=== PATIENT | male | born 1995 | race African-American/Black ===

== ENCOUNTER 2021-05-02 16:15 | Inpatient (IN) | payer OTHER ==
[2021-05-02 20:37] VITALS: BMI 29.6
[2021-05-02] MEDS ORDERED: ONDANSETRON *ODT* 4 MG TABLET SL PRN (21:04)
[2021-05-02] MEDS ORDERED: IBUPROFEN 400 MG TABLET (FP) PO PRN (21:04)
[2021-05-02] MEDS ORDERED: ACETAMINOPHEN 325 MG TABLET (FP) PO PRN (21:04)
[2021-05-02] MEDS ORDERED: MENTHOL/PHENOL 1 EACH UD MM PRN (21:04)
[2021-05-02] MEDS ORDERED: NICOTINE 10 MG CARTRIDGE (INHALER) IH PRN (21:04)
[2021-05-02] MEDS ORDERED: MAGNESIUM CITRATE 300 ML BOTTLE PO PRN (21:04)
[2021-05-02] MEDS ORDERED: MAG HYDROX/AL HYDROX/SIMETH 30 ML UNIT-DOSE CUP PO PRN (21:04)
[2021-05-02] MEDS ORDERED: BISMUTH SUBSALICYLATE 524 MG/30 ML PO PRN (21:04)
[2021-05-02] MEDS ORDERED: diazePAM 5 MG TABLET PO ONE (21:06)
[2021-05-02] MEDS ORDERED: diazePAM 5 MG TABLET PO PRN (21:06)
[2021-05-03] MEDS: MELATONIN 5 MG TABLETS PO SCH ×2 (00:07→22:24)
[2021-05-03] MEDS: THIAMINE HCL 100 MG TABLET (FP) PO SCH ×2 (00:08→22:24)
[2021-05-03] MEDS: hydrOXYzine PAMOATE 25 MG CAPSULE (FP) PO SCH ×4 (00:08→10:24)
[2021-05-03] MEDS: diazePAM 5 MG TABLET PO SCH ×6 (00:09→22:24)
[2021-05-03] MEDS: PRENATAL VITAMINS W/ FOLIC ACID TABLET (FP) PO SCH ×2 (01:25→10:24)
[2021-05-03] MEDS: ACETAMINOPHEN 325 MG TABLET (FP) PO PRN (06:12)
[2021-05-03] MEDS: METHOCARBAMOL 500 MG TABLET PO PRN (10:25)
[2021-05-03 11:02] LABS: HEMATOCRIT 41.4 % (35.4-49); HEMOGLOBIN 13.6 GM/dL (11.7-16.9); MCH 27.9 pg (25.7-33.7); MCHC 32.7 g/dl (32.0-35.9); MEAN CELL VOLUME 85.2 fl (80-96); MEAN PLT VOLUME 9.8 fl (7.5-11.1); PLATELET COUNT 243 10^3/uL (134-434); RBC 4.86 M/mm3 (4.00-5.60); WHITE BLOOD COUNT 6.2 K/mm3 (4.0-10.0)
[2021-05-03 11:15] LABS: ALBUMIN 3.6 g/dl (3.4-5.0); BLOOD UREA NITROGEN 13.8 mg/dL (7-18); CREATININE 0.8 mg/dL (0.55-1.3)
[2021-05-03 11:17] LABS: BILIRUBIN,TOTAL 0.5 mg/dL (0.2-1)
[2021-05-03] MEDS: EMTRICITABINE 200MG/TENOFOVIR 300MG PO SCH (13:33)
[2021-05-03] MEDS: MAGNESIUM HYDROX 2400MG/30ML ORAL SUSPENSION 30 ML CUP PO PRN (18:36)
[2021-05-04] MEDS: diazePAM 5 MG TABLET PO SCH ×3 (05:51→22:13)
[2021-05-04] MEDS: hydrOXYzine PAMOATE 25 MG CAPSULE (FP) PO PRN ×2 (10:11→22:15)
[2021-05-04] MEDS: METHOCARBAMOL 500 MG TABLET PO PRN (10:11)
[2021-05-04] MEDS: EMTRICITABINE 200MG/TENOFOVIR 300MG PO SCH (10:12)
[2021-05-04] MEDS: PRENATAL VITAMINS W/ FOLIC ACID TABLET (FP) PO SCH (10:12)
[2021-05-04] MEDS: THIAMINE HCL 100 MG TABLET (FP) PO SCH (22:14)
[2021-05-04] MEDS: MELATONIN 5 MG TABLETS PO SCH (22:14)
[2021-05-05] MEDS: diazePAM 5 MG TABLET PO SCH ×2 (06:00→17:39)
[2021-05-05] MEDS: MAGNESIUM HYDROX 2400MG/30ML ORAL SUSPENSION 30 ML CUP PO PRN (06:00)
[2021-05-05] MEDS: ACETAMINOPHEN 325 MG TABLET (FP) PO PRN ×2 (07:40→14:21)
[2021-05-05] MEDS: EMTRICITABINE 200MG/TENOFOVIR 300MG PO SCH (09:58)
[2021-05-05] MEDS: PRENATAL VITAMINS W/ FOLIC ACID TABLET (FP) PO SCH (09:58)
[2021-05-05] MEDS: METHOCARBAMOL 500 MG TABLET PO PRN (09:59)
[2021-05-05] MEDS: MELATONIN 5 MG TABLETS PO SCH (22:06)
[2021-05-05] MEDS: THIAMINE HCL 100 MG TABLET (FP) PO SCH (22:06)
[2021-05-06] MEDS ORDERED: diazePAM 5 MG TABLET PO ONE (06:00)
[2021-05-06] MEDS: ACETAMINOPHEN 325 MG TABLET (FP) PO PRN (06:25)
[2021-05-06 06:41] VITALS: BP 115/70; PULSE 81; TEMP 97.4
[2021-05-06] MEDS: PRENATAL VITAMINS W/ FOLIC ACID TABLET (FP) PO SCH (09:02)
[2021-05-06] MEDS: EMTRICITABINE 200MG/TENOFOVIR 300MG PO SCH (09:03)
== END 2021-05-06 09:20 | disposition home or self-care (01) | DRG 775 ==
LOC: YASAS 16:15 → Y3N 21:02
PROVIDERS: ADMIT Allergy & Immunology; ATTEND Allergy & Immunology
PROC: HZ2ZZZZ Detoxification Services for Substance Abuse Treatment (ICD-10-PCS; principal; 2021-05-02)
DX: F10.230 Alcohol dependence with withdrawal, uncomplicated (principal); Z20.6 Contact with and (suspected) exposure to human immunodeficiency virus [HIV]; Z79.899 Other long term (current) drug therapy; Z86.19 Personal history of other infectious and parasitic diseases; Z87.891 Personal history of nicotine dependence
CPT/HCPCS: 36415; 80053; 85027; 86593; 86780; C9803; U0003; U0005